=== PATIENT | female | born 2000 | race Caucasian/White ===

== ENCOUNTER 2020-05-19 17:46 | Emergency (ER) | payer SELFPAY ==
--- NOTE | 2020-05-19 18:05 | EDM.PDOC ---
ED HPI GENERAL MEDICAL PROBLEM - General Chief Complaint: SECURITY TECH Problem Stated Complaint: 8 WKS PREG WITH BLEEDING Time Seen by Provider: 05/19/20 18:00 Source of Information: Reports: Patient History Limitations: Reports: No Limitations - History of Present Illness INITIAL COMMENTS - FREE TEXT/NARRATIVE: Anya comes into [facility] ED with appearance of painless vaginal spotting this pm. She is Primigravida, approximately 7 weeks gestation, and has reportedly had 2 vaginal US by providers in the past 2 weeks. She reports no exposures to STD. ED ROS GENERAL - Review of Systems Review Of Systems: Comprehensive ROS is negative, except as noted in HPI. ED EXAM - Physical Exam Exam: See Below Exam Limited By: No Limitations General Appearance: Alert, WD/WN, No Apparent Distress Head: Normocephalic Neck: Normal Inspection, Supple, Non-Tender Respiratory/Chest: Lungs Clear Cardiovascular: Regular Rate, Rhythm, No Murmur GI/Abdominal Exam: Normal Bowel Sounds, Soft, Non-Tender, No Organomegaly, No Distention, No Mass Rectal Exam: Deferred (Female) Exam: Normal Bimanual Exam (performed with RN associate marketing manager: uterus anterior, 6-7 weeks size, nontender, adnexae negative; cervix closed with minor BRB present; ), Normal External Exam Heart Tones: Not [place] Neurological: Alert, Oriented, Normal Cognition Psychiatric: Normal Affect, Normal Mood Skin Exam: Warm, Dry, Intact, Normal Color, No Rash Lymphatic: No Adenopathy Course - Vital Signs Text/Narrative:: Following assessment[place] [address] [place]. She was subsequently seen by PCP Dr Lawson who advised follow up Quant HCG in 48 hrs and repeat US next week. No meds dispensed. Last Recorded V/S: Last Vital Signs Temp 36.1 C 05/19/20 17:46 Pulse 100 05/19/20 17:46 Resp 18 05/19/20 17:46 BP 131/73 05/19/20 17:46 Pulse Ox 97 05/19/20 17:46 - Orders/Labs/Meds Labs: Laboratory Tests 05/19/20 Range/Units 18:22 HCG, Quant 81779 (<5) mIU/mL Departure - Departure Time of Disposition: 19:10 Disposition: Home, Self-Care 01 Condition: Fair Clinical Impression: Threatened - Discharge Information *PRESCRIPTION DRUG MONITORING PROGRAM REVIEWED*: Not Applicable *COPY OF PRESCRIPTION DRUG MONITORING REPORT IN PATIENT MONTEZ: Not Applicable Instructions: Threatened Miscarriage, [id number] Referrals: Uri Lawson MD [Primary Care Provider] - (Next week) Forms: ED Department Discharge Additional Instructions: Follow up Dr. Lawson next week Care Plan Goals: Return to have Lab drawn on Saturday night here in the ER - Problem List & Annotations (1) Threatened SNOMED Code(s): 47695272 Code(s): O20.0 - THREATENED Status: Acute Annotation/Comment:: Quant HCG in 48 hrs and US next week per PCP. - Problem List Review Problem List Initiated/Reviewed/Updated: Yes - Assessment/Plan Plan: Follow up with PCP.
--- NOTE | 2020-05-20 14:21 | ER ---
DATE SEEN: 05/19/2020 CHIEF COMPLAINT: Spotting. HISTORY OF PRESENT ILLNESS: A 19-year-old female, primigravida, who complains of spotting. I saw her in the clinic recently and an ultrasound done showed a 5- week gestation. Today, she noticed some spotting. She has seen Dr. Poole and hCG level showed a level of 21,676. She denies any cramping. REVIEW OF SYSTEMS: No fever or urinary symptoms. MEDICATIONS: Reviewed. PHYSICAL EXAMINATION: VITAL SIGNS: Afebrile and vital signs are normal. ABDOMEN: Soft. MENTAL STATUS: Alert. LABORATORY DATA: As above in HPI. IMPRESSION: Threatened miscarriage. PLAN: My plan is beta hCG in 48 hours as an outpatient and also have an ultrasound in the office next week. I reviewed this with the patient and discharged in satisfactory condition. /[id number] NASEEM/ERIC
== END 2020-05-19 19:20 | disposition home or self-care (01) ==
LOC: FB.ED 17:46
DX: O20.0 Threatened abortion (principal); Z3A.01 Less than 8 weeks gestation of pregnancy
CPT/HCPCS: 36415; 84702; 99283; 99284